=== PATIENT | male | born 1960 | race American Indian/Alaskan Native ===

== ENCOUNTER 2016-10-29 17:43 | Emergency (ER) | payer MEDICAID, OTHER ==
[2016-10-29] MEDS ORDERED: Sodium Chloride 0.9% 1,000 ML IV ONE (17:49)
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
[2016-10-29 20:36] VITALS: BP 123/78
--- NOTE | 2016-11-14 07:19 | EKG ---
10/29/2016- YAZAN WATKINS - EKG, per my reading, shows sinus rhythm at a rate of 104. [facility] /[id number]
== END 2016-10-29 20:25 | disposition home or self-care (01) ==
LOC: DL.ED 17:43
DX: I47.1 Supraventricular tachycardia (principal); I48.91 Unspecified atrial fibrillation; M19.90 Unspecified osteoarthritis, unspecified site; M06.9 Rheumatoid arthritis, unspecified; F17.210 Nicotine dependence, cigarettes, uncomplicated; Z79.82 Long term (current) use of aspirin; Z79.899 Other long term (current) drug therapy; Z88.6 Allergy status to analgesic agent
CPT/HCPCS: 36415; 80053; 84484; 85025; 93005; 96360; 99284; J7030

== ENCOUNTER 2016-11-12 16:18 | Emergency (ER) | payer MEDICAID, OTHER ==
[2016-11-12 16:50] VITALS: BP 122/87
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
[2016-11-12] MEDS ORDERED: Amoxicillin/Clavulanate K 875-125 MG Tab PO ONE (18:42)
[2016-11-12] MEDS ORDERED: Gentamicin 0.3% Ophth Soln 5 ML Bottle EYELF ONE (18:44)
== END 2016-11-12 18:55 | disposition home or self-care (01) ==
LOC: DL.ED 16:18
DX: S02.32XA Fracture of orbital floor, left side, initial encounter for closed fracture (principal); S05.12XA Contusion of eyeball and orbital tissues, left eye, initial encounter; H60.391 Other infective otitis externa, right ear; H72.91 Unspecified perforation of tympanic membrane, right ear; I48.91 Unspecified atrial fibrillation; I10 Essential (primary) hypertension; M19.90 Unspecified osteoarthritis, unspecified site; F17.210 Nicotine dependence, cigarettes, uncomplicated; Z79.82 Long term (current) use of aspirin; Z79.899 Other long term (current) drug therapy; Z88.6 Allergy status to analgesic agent; Y04.0XXA Assault by unarmed brawl or fight, initial encounter
CPT/HCPCS: 36415; 70486; 85025; 87070; 87077; 87186; 99283

== ENCOUNTER 2016-11-25 15:59 | Emergency (ER) | payer MEDICAID, OTHER ==
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
[2016-11-25 16:54] VITALS: BP 122/74
[2016-11-25 17:03] LABS: CHLORIDE,CL 108 mmol/L (101-111); SODIUM,NA 139 mmol/L (135-145)
[2016-11-25] MEDS ORDERED: Acetaminophen 325 MG Tab PO ONE (17:26)
--- NOTE | 2016-11-26 12:03 | EKG ---
11/25/2016 - YAZAN WATKINS I reviewed the EKG and agree with the machine's reading. [facility] /[id number]
== END 2016-11-25 17:45 | disposition home or self-care (01) ==
LOC: DL.ED 15:59
DX: S20.211A Contusion of right front wall of thorax, initial encounter (principal); R00.0 Tachycardia, unspecified; I10 Essential (primary) hypertension; M19.90 Unspecified osteoarthritis, unspecified site; M06.9 Rheumatoid arthritis, unspecified; F17.210 Nicotine dependence, cigarettes, uncomplicated; Z98.890 Other specified postprocedural states; Z88.6 Allergy status to analgesic agent; Z79.82 Long term (current) use of aspirin; Z79.899 Other long term (current) drug therapy; X58.XXXA Exposure to other specified factors, initial encounter
CPT/HCPCS: 36415; 80053; 84484; 85025; 93005; 99285; A9270

== ENCOUNTER 2017-01-08 23:16 | Emergency (ER) | payer MEDICAID, OTHER ==
[2017-01-08] MEDS ORDERED: Diltiazem 25 MG/5 ML SDV IVPUSH ONE (23:21)
--- NOTE | 2017-01-08 23:22 | EDM.PDOC ---
ED HPI GENERAL MEDICAL PROBLEM - General Chief Complaint: Cardiovascular Problem Stated Complaint: COMING BY AMBULANCE Time Seen by Provider: 01/08/17 23:21 Source of Information: Reports: Patient, EMS History Limitations: Reports: No Limitations - History of Present Illness INITIAL COMMENTS - FREE TEXT/NARRATIVE: recurrent h/o rapid heart. arrived with HR 180. denies CP/SOB. c/o pain in knee only, from recent knee replacement. Sx began while resting watching TV. Left Knee Pain Score (Numeric/FACES): 7 - Related Data Allergies Allergy/AdvReac Type Severity Reaction Status Date / Time ibuprofen [From Motrin] Allergy Tachycardia Verified 01/09/17 00:27 Home Meds: Home Meds Aspirin [Halfprin] 81 mg PO DAILY 09/20/14 [History] Diltiazem HCl [Diltiazem 24Hr ER] 240 mg PO DAILY 09/20/14 [History] Multivitamins,Therapeutic [Thera] 1 each PO DAILY 10/29/16 [History] Past Medical History HEENT History: Reports: Impaired Vision, Other (See Below) Other HEENT History: wears glasses Cardiovascular History: Reports: Afib, Hypertension Other Cardiovascular History: afib Respiratory History: Reports: None Gastrointestinal History: Reports: None Genitourinary History: Reports: None Musculoskeletal History: Reports: Arthritis, Fracture, Osteoarthritis, RA Neurological History: Reports: None Psychiatric History: Reports: Addiction Endocrine/Metabolic History: Reports: None Hematologic History: Reports: None Immunologic History: Reports: None Oncologic (Cancer) History: Reports: None Dermatologic History: Reports: None - Infectious Disease History Infectious Disease History: Reports: None - Past Surgical History Musculoskeletal Surgical History: Reports: Knee Replacement Social & Family History - Family History Family Medical History: Noncontributory - Tobacco Use Smoking Status *Q: Current Every Day Smoker Years of Tobacco use: 40 Packs/Tins Daily: 0.3 Used Tobacco, but Quit: Yes Month Tobacco Last Used: 12/2014 Second Hand Smoke Exposure: Yes - Caffeine Use Caffeine Use: Reports: Coffee, Soda, Tea Caffeine Use Comment: daily - Alcohol Use Days Per Week of Alcohol Use: 1 Number of Drinks Per Day: 12 Total Drinks Per Week: 12 - Recreational Drug Use Recreational Drug Use: No Recreational Drug Type: Reports: Marijuana/Hashish Recreational Drug Use Frequency: Rarely - Living Situation & Occupation Living situation: Reports: Single, with Family Occupation: Unemployed ED ROS GENERAL - Review of Systems Review Of Systems: ROS reveals no pertinent complaints other than HPI. ED EXAM, GENERAL - Physical Exam Exam: See Below Exam Limited By: No Limitations General Appearance: Alert, WD/WN, Anxious Ears: Hearing Grossly Normal Throat/Mouth: Normal Voice, No Airway Compromise Head: Atraumatic Neck: Non-Tender, Full Range of Motion Respiratory/Chest: No Respiratory Distress Cardiovascular: Tachycardia GI/Abdominal: Soft, Non-Tender Neurological: Alert, Oriented, Normal Cognition, No Motor/Sensory Deficits Psychiatric: Anxious Skin Exam: Warm, Dry Lymphatic: No Adenopathy Course - Vital Signs Last Recorded V/S: Last Vital Signs Temp 37.6 C 01/08/17 23:20 Pulse 109 H 01/09/17 00:32 Resp 18 01/09/17 00:32 BP 123/78 01/09/17 00:32 Pulse Ox 97 01/09/17 00:32 - Orders/Labs/Meds Orders: Active Orders 24 hr Category Date Time Status EKG 12 Lead [EKG Documentation Completion] [RC] STAT Care 01/08/17 23:24 Active EKG 12 Lead [EKG Documentation Completion] [RC] STAT Care 01/09/17 00:24 Active Labs: Laboratory Tests 01/08/17 01/08/17 Range/Units 23:30 23:30 WBC 10.3 H (5.0-10.0) 10^3/uL RBC 4.18 L (4.6-6.2) 10^6/uL Hgb 12.3 L (14.0-18.0) g/dL Hct 36.7 L (40.0-54.0) % MCV 87.8 (80-100) fL MCH 29.4 (27.0-34.0) pg MCHC 33.5 (33.0-35.0) g/dL Plt Count 177 (150-450) 10^3/uL Neut % (Auto) 79.5 H (42.2-75.2) % Lymph % (Auto) 10.1 L (20.5-50.1) % Nelson % (Auto) 8.7 H (2-8) % Eos % (Auto) 1.4 (1.0-3.0) % Baso % (Auto) 0.3 (0.0-1.0) % Sodium 139 (135-145) mmol/L Potassium 3.7 (3.6-5.0) mmol/L Chloride 106 (101-111) mmol/L Carbon Dioxide 23.0 (21.0-31.0) mmol/L Anion Gap 13.7 BUN 14 (7-18) mg/dL Creatinine 1.0 (0.6-1.3) mg/dL Est Cr Clr Drug Dosing 91.61 mL/min Estimated GFR (MDRD) > 60 BUN/Creatinine Ratio 14.00 Glucose 135 H (74-105) mg/dL Calcium 8.5 (8.4-10.2) mg/dl Total Bilirubin 0.7 (0.2-1.0) mg/dL AST 17 (10-42) IU/L ALT 18 (10-60) IU/L Alkaline Phosphatase 84 (42-121) IU/L Troponin I < 0.02 (0.00-0.02) ng/ml Total Protein 6.2 L (6.7-8.2) g/dl Albumin 3.6 (3.2-5.5) g/dl Globulin 2.6 Albumin/Globulin Ratio 1.38 Meds: Medications Discontinued Medications Generic Name Dose Route Start Last Admin Trade Name Freq PRN Reason Stop Dose Admin Diltiazem HCl 25 mg 01/08/17 23:21 01/08/17 23:24 Diltiazem IVPUSH 01/08/17 23:22 25 mg ONETIME ONE Administration Diltiazem HCl 30 mg 01/09/17 00:12 01/09/17 00:20 Cardizem PO 01/09/17 00:13 30 mg ONETIME ONE Administration - Re-Assessments/Exams Free Text/Narrative Re-Assessment/Exam: 01/09/17 00:12 re-exam; resting peacefully txting, no c/o, wants to go home. Departure - Departure Time of Disposition: 00:46 Disposition: Home, Self-Care 01 Condition: Good Clinical Impression: SVT (supraventricular tachycardia) Instructions: Paroxysmal Supraventricular Tachycardia, [id number] Forms: ED Department Discharge Additional Instructions: 1) rest avoid bending lifting straining 2) follow up at clinic or recheck if there is any change or concern - My Orders Last 24 Hours: My Active Orders 01/08/17 23:24 EKG 12 Lead [EKG Documentation Completion] [RC] STAT 01/09/17 00:24 EKG 12 Lead [EKG Documentation Completion] [RC] STAT - Assessment/Plan Last 24 Hours: My Active Orders 01/08/17 23:24 EKG 12 Lead [EKG Documentation Completion] [RC] STAT 01/09/17 00:24 EKG 12 Lead [EKG Documentation Completion] [RC] STAT
[2017-01-08 23:53] LABS: CHLORIDE,CL 106 mmol/L (101-111); SODIUM,NA 139 mmol/L (135-145)
[2017-01-09] MEDS ORDERED: Diltiazem IR 30 MG Tab PO ONE (00:12)
[2017-01-09 00:33] VITALS: BP 123/78
--- NOTE | 2017-01-12 01:28 | EKG ---
01/08/2017 - YAZAN WATKINS - TIME OF EK hours. This is the first of two EKG's. The 12-lead EKG shows a supraventricular tachycardia with a ventricular rate of 181. Any ST-T wave changes are most likely rate related. [facility] /[id number] MTDD
--- NOTE | 2017-01-12 01:34 | EKG ---
01/08/2017 - YAZAN WATKINS - This is the second of 2 EKGs performed approximately 20 minutes apart. This EKG now shows a normal sinus rhythm with a ventricular rate of 98. Normal axis and intervals. No acute ST-segment or T-wave changes. The previous supraventricular tachycardia on the first EKG has resolved. [facility] /[id number]
== END 2017-01-09 00:49 | disposition home or self-care (01) ==
LOC: DL.ED 23:16
DX: I47.1 Supraventricular tachycardia (principal); I10 Essential (primary) hypertension; I48.91 Unspecified atrial fibrillation; M19.90 Unspecified osteoarthritis, unspecified site; F17.210 Nicotine dependence, cigarettes, uncomplicated; Z96.659 Presence of unspecified artificial knee joint; Z79.82 Long term (current) use of aspirin; Z79.899 Other long term (current) drug therapy; Z88.6 Allergy status to analgesic agent
CPT/HCPCS: 36415; 71010; 80053; 84484; 85025; 93005; 96374; 99285; A9270; J3490

== ENCOUNTER 2017-01-12 10:25 | Emergency (ER) | payer MEDICAID, OTHER ==
--- NOTE | 2017-01-12 10:41 | EDM.PDOC ---
ED HPI GENERAL MEDICAL PROBLEM - General Chief Complaint: Lower Extremity Injury/Pain Stated Complaint: [id number] HAD SURGERY KNEE SWOLLEN Time Seen by Provider: 01/12/17 10:40 Source of Information: Reports: Patient, Old Records, RN, RN Notes Reviewed History Limitations: Reports: No Limitations - History of Present Illness INITIAL COMMENTS - FREE TEXT/NARRATIVE: Arrives from home by POV with c/o increasing left knee pain, swelling, redness, and feels hot to touch. Pt is on POD #6 s/p left TKR by Dr. Santamaria at [facility] in [place]. Pt reports recurrent chills in the last 24 hours. Denies fevers. He has not removed the postop. dressing. 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, Other Medication(s) Left Knee Pain Score (Numeric/FACES): 7 - Related Data Allergies Allergy/AdvReac Type Severity Reaction Status Date / Time ibuprofen [From Motrin] Allergy Tachycardia Verified 01/12/17 10:34 Home Meds: Home Meds Aspirin [Halfprin] 81 mg PO DAILY 09/20/14 [History] Diltiazem HCl [Diltiazem 24Hr ER] 240 mg PO DAILY 09/20/14 [History] Multivitamins,Therapeutic [Thera] 1 each PO DAILY 10/29/16 [History] Acetaminophen/oxyCODONE [Percocet 325-5 MG] 1 - 2 tab PO Q4HR PRN 01/12/17 [ History] Sennosides/Docusate Sodium [Senna S Tablet] 1 each PO BID 01/12/17 [History] Past Medical History HEENT History: Reports: Impaired Vision, Other (See Below) Other HEENT History: wears glasses Cardiovascular History: Reports: Afib, Hypertension Other Cardiovascular History: afib Respiratory History: Reports: None Gastrointestinal History: Reports: None Genitourinary History: Reports: None Musculoskeletal History: Reports: Arthritis, Fracture, Osteoarthritis, RA Neurological History: Reports: None Psychiatric History: Reports: Addiction Endocrine/Metabolic History: Reports: None Hematologic History: Reports: None Immunologic History: Reports: None Oncologic (Cancer) History: Reports: None Dermatologic History: Reports: None - Infectious Disease History Infectious Disease History: Reports: None - Past Surgical History Musculoskeletal Surgical History: Reports: Knee Replacement Social & Family History - Family History Family Medical History: Noncontributory - Tobacco Use Smoking Status *Q: Current Every Day Smoker Years of Tobacco use: 40 Packs/Tins Daily: 0.3 Used Tobacco, but Quit: Yes Month Tobacco Last Used: 12/2014 Second Hand Smoke Exposure: Yes - Caffeine Use Caffeine Use: Reports: Coffee, Soda, Tea Caffeine Use Comment: daily - Alcohol Use Days Per Week of Alcohol Use: 1 Number of Drinks Per Day: 12 Total Drinks Per Week: 12 - Recreational Drug Use Recreational Drug Use: No Recreational Drug Type: Reports: Marijuana/Hashish Recreational Drug Use Frequency: Rarely - Living Situation & Occupation Living situation: Reports: Single, with Family Occupation: Unemployed Review of Systems - Review of Systems Review Of Systems: ROS reveals no pertinent complaints other than HPI. ED EXAM, GENERAL - Physical Exam Exam: See Below Exam Limited By: No Limitations General Appearance: Alert, WD/WN, No Apparent Distress Head: Atraumatic, Normocephalic Respiratory/Chest: No Respiratory Distress, Lungs Clear, Normal Breath Sounds, No Accessory Muscle Use, Chest Non-Tender Cardiovascular: Normal Peripheral Pulses, Regular Rate, Rhythm Peripheral Pulses: 2+: Dorsalis Pedis (L), Dorsalis Pedis (R) GI/Abdominal: Normal Bowel Sounds, Soft, Non-Tender, No Distention (Male) Exam: Deferred Rectal (Males) Exam: Deferred Back Exam: Normal Inspection Extremities: No Pedal Edema, Normal Capillary Refill, Joint Swelling (left knee) , Limited Range of Motion (left knee), Increased Warmth (left knee), Redness ( left knee), Other (postop. occlusive dressing not removed.) Neurological: Alert, Oriented, Normal Cognition, No Motor/Sensory Deficits Psychiatric: Normal Affect, Normal Mood Course - Vital Signs Last Recorded V/S: Last Vital Signs Temp 36.7 C 01/12/17 10:39 Pulse 78 01/12/17 10:39 Resp 16 01/12/17 10:39 BP 126/74 01/12/17 10:39 Pulse Ox 98 01/12/17 10:39 - Orders/Labs/Meds Orders: Active Orders 24 hr Category Date Time Status Peripheral IV Care [RC] . DIRECTED Care 01/12/17 10:53 Active CULTURE BLOOD [BC] Stat Lab 01/12/17 11:05 Received CULTURE BLOOD [BC] Stat Lab 01/12/17 11:14 Received Sodium Chloride 0.9% [Saline Flush] Med 01/12/17 10:52 Active 10 ml FLUSH ASDIRECTED PRN Blood Culture x2 Reflex Set [OM.PC] Stat Oth 01/12/17 10:52 Ordered Peripheral IV Insertion Adult [OM.PC] Stat Ot 01/12/17 10:52 Ordered Medication Orders Sodium Chloride (Saline Flush) 10 ml FLUSH ASDIRECTED PRN PRN Reason: Keep Vein Open Last Admin: 01/12/17 11:18 Dose: 10 ml Labs: Laboratory Tests 01/12/17 01/12/17 01/12/17 Range/Units 11:05 11:05 11:05 WBC 8.8 (5.0-10.0) 10^3/uL RBC 4.07 L (4.6-6.2) 10^6/uL Hgb 11.9 L (14.0-18.0) g/dL Hct 35.5 L (40.0-54.0) % MCV 87.2 (80-100) fL MCH 29.2 (27.0-34.0) pg MCHC 33.5 (33.0-35.0) g/dL Plt Count 255 (150-450) 10^3/uL Neut % (Auto) 79.8 H (42.2-75.2) % Lymph % (Auto) 9.3 L (20.5-50.1) % Bill[place] % (Auto) 6.9 (2-8) % Eos % (Auto) 3.7 H (1.0-3.0) % Baso % (Auto) 0.3 (0.0-1.0) % ESR 85 H (0-15) mm/hr Sodium 137 (135-145) mmol/L Potassium 4.3 (3.6-5.0) mmol/L Chloride 102 (101-111) mmol/L Carbon Dioxide 25.0 (21.0-31.0) mmol/L Anion Gap 14.3 BUN 16 (7-18) mg/dL Creatinine 0.9 (0.6-1.3) mg/dL Est Cr Clr Drug Dosing 101.79 mL/min Estimated GFR (MDRD) > 60 BUN/Creatinine Ratio 17.77 Glucose 120 H (74-105) mg/dL Lactic Acid 0.8 (0.5-2.2) mmol/L Calcium 8.7 (8.4-10.2) mg/dl Total Bilirubin 1.0 (0.2-1.0) mg/dL AST 18 (10-42) IU/L ALT 21 (10-60) IU/L Alkaline Phosphatase 93 (42-121) IU/L C-Reactive Protein (0.0-1.3) mg/dL Total Protein 7.0 (6.7-8.2) g/dl Albumin 3.4 (3.2-5.5) g/dl Globulin 3.6 Albumin/Globulin Ratio 0.94 // Range/Units 11:05 WBC (5.0-10.0) 10^3/uL RBC (4.6-6.2) 10^6/uL Hgb (14.0-18.0) g/dL Hct (40.0-54.0) % MCV (80-100) fL MCH (27.0-34.0) pg MCHC (33.0-35.0) g/dL Plt Count (150-450) 10^3/uL Neut % (Auto) (42.2-75.2) % Lymph % (Auto) (20.5-50.1) % Billings % (Auto) (2-8) % Eos % (Auto) (1.0-3.0) % Baso % (Auto) (0.0-1.0) % ESR (0-15) mm/hr Sodium (135-145) mmol/L Potassium (3.6-5.0) mmol/L Chloride (101-111) mmol/L Carbon Dioxide (21.0-31.0) mmol/L Anion Gap BUN (7-18) mg/dL Creatinine (0.6-1.3) mg/dL Est Cr Clr Drug Dosing mL/min Estimated GFR (MDRD) BUN/Creatinine Ratio Glucose (74-105) mg/dL Lactic Acid (0.5-2.2) mmol/L Calcium (8.4-10.2) mg/dl Total Bilirubin (0.2-1.0) mg/dL AST (10-42) IU/L ALT (10-60) IU/L Alkaline Phosphatase (42-121) IU/L C-Reactive Protein 19.5 H (0.0-1.3) mg/dL Total Protein (6.7-8.2) g/dl Albumin (3.2-5.5) g/dl Globulin Albumin/Globulin Ratio Meds: Medications Generic Name Dose Route Start Last Admin Trade Name Freq PRN Reason Stop Dose Admin Sodium Chloride 10 ml 01/12/17 10:52 01/12/17 11:18 Saline Flush FLUSH 10 ml ASDIRECTED PRN Administration Keep Vein Open Discontinued Medications Generic Name Dose Route Start Last Admin Trade Name Freq PRN Reason Stop Dose Admin Morphine Sulfate 4 mg 01/12/17 10:53 01/12/17 11:17 Morphine IVPUSH 01/12/17 10:54 4 mg ONETIME ONE Administration Departure - Departure Time of Disposition: 12:40 Disposition: Home, Self-Care 01 Condition: Fair Clinical Impression: Postoperative pain of left knee - Discharge Information Instructions: Total Knee Replacement, [id number] Forms: ED Department Discharge Additional Instructions: Go directly to Dr. Santamaria's orthopedic office in [place] now. You must be there before 2:30PM today. - My Orders Last 24 Hours: My Active Orders 01/12/17 10:52 Sodium Chloride 0.9% [Saline Flush] 10 ml FLUSH ASDIRECTED PRN Blood Culture x2 Reflex Set [OM.PC] Stat Peripheral IV Insertion Adult [OM.PC] Stat 01/12/17 10:53 Peripheral IV Care [RC] . DIRECTED 01/12/17 11:05 CULTURE BLOOD [BC] Stat 01/12/17 11:14 CULTURE BLOOD [BC] Stat - Assessment/Plan Last 24 Hours: My Active Orders 01/12/17 10:52 Sodium Chloride 0.9% [Saline Flush] 10 ml FLUSH ASDIRECTED PRN Blood Culture x2 Reflex Set [OM.PC] Stat Peripheral IV Insertion Adult [OM.PC] Stat 01/12/17 10:53 Peripheral IV Care [RC] . DIRECTED 01/12/17 11:05 CULTURE BLOOD [BC] Stat 01/12/17 11:14 CULTURE BLOOD [BC] Stat
[2017-01-12] MEDS ORDERED: Sodium Chloride 0.9% 10 ML Syringe FLUSH PRN (10:52)
[2017-01-12] MEDS ORDERED: Morphine 4 MG/ML Syringe IVPUSH ONE (10:53)
[2017-01-12 11:51] LABS: CHLORIDE,CL 102 mmol/L (101-111); SODIUM,NA 137 mmol/L (135-145)
--- NOTE | 2017-01-12 11:55 | CR ---
Clinical history: 56-year-old male with "hot, red, and painful" left knee (status post total knee re placement). Interpretation: Long vertical row surgical skin windy extending from above the distal femoral component down below the proximal tibial component of total left knee prosthesis. Distal femoral, proximal tibial, and retropatellar component of the replacement appear to be satisfa ctorily seated. (Portions of 2 orthopedic screws embedded, respectively, in the distal left femur and proximal left tibia anteriorly). Pronounced soft tissue swelling and apparent left knee joint effusion but no inflammatory periostiti s or bony destruction. . No fracture or dislocation.
[2017-01-12 12:45] VITALS: BP 116/88
== END 2017-01-12 12:50 | disposition home or self-care (01) ==
LOC: DL.ED 10:25
DX: G89.18 Other acute postprocedural pain (principal); M25.562 Pain in left knee; I48.91 Unspecified atrial fibrillation; I10 Essential (primary) hypertension; M19.90 Unspecified osteoarthritis, unspecified site; M06.9 Rheumatoid arthritis, unspecified; F17.210 Nicotine dependence, cigarettes, uncomplicated; Z88.6 Allergy status to analgesic agent; Z79.899 Other long term (current) drug therapy
CPT/HCPCS: 36415; 73562; 80053; 83605; 85025; 85651; 86140; 87040; 96374; 99283; J2270; J7050

== ENCOUNTER 2018-01-03 09:51 | Emergency (ER) | payer MEDICAID, OTHER ==
[2018-01-03] MEDS ORDERED: Sodium Chloride 0.9% 10 ML Syringe FLUSH PRN (10:13)
[2018-01-03] MEDS ORDERED: MVI, Adult with Vitamin K 10 ML, Folic Acid 1 MG, Thiamine 100 MG in Lactated Ringers 1... IV ONE ×4 (10:14)
[2018-01-03 10:27] VITALS: BP 128/77
[2018-01-03 10:37] LABS: CHLORIDE,CL 107 mmol/L (101-111); SODIUM,NA 140 mmol/L (135-145)
[2018-01-03] MEDS ORDERED: Thiamine 200 MG/2 ML MDV ONE (10:38)
[2018-01-03] MEDS ORDERED: MVI, Adult with Vitamin K 10 ML SDV IV ONE (10:38)
[2018-01-03] MEDS ORDERED: LORazepam 0.5 MG Tab PO ONE (11:07)
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
== END 2018-01-03 12:05 | disposition home or self-care (01) ==
LOC: DL.ED 09:51
DX: I49.3 Ventricular premature depolarization (principal); R00.2 Palpitations; F10.10 Alcohol abuse, uncomplicated; F41.9 Anxiety disorder, unspecified; I10 Essential (primary) hypertension; Z88.6 Allergy status to analgesic agent; Z79.82 Long term (current) use of aspirin; Z79.899 Other long term (current) drug therapy; Y90.6 Blood alcohol level of 120-199 mg/100 ml
CPT/HCPCS: 36415; 71045; 80053; 84484; 85025; 85610; 93005; 96365; 99285; A9270; G0480; J3411; J7050; J7120; J3490

== ENCOUNTER 2020-10-27 09:04 | Emergency (ER) | payer MEDICAID, OTHER ==
[2020-10-27 09:19] VITALS: BP 140/92; PULSE 93
[2020-10-27 10:04] LABS: ANION GAP 11.6 mEq/L (7-13); CHLORIDE,CL 103 mmol/L (98-107); SODIUM,NA 138 mmol/L (136-145)
--- NOTE | 2020-10-27 10:48 | CT ---
PROCEDURE INFORMATION: Exam: CT Abdomen And Pelvis Without Contrast Exam date and time: 10/27/2020 10:23 AM Age: 60 years old Clinical indication: Abdominal pain; Localized; Left upper quadrant (luq) TECHNIQUE: Imaging protocol: Computed tomography of the abdomen and pelvis without contrast. Radiation optimization: All CT scans at this facility use at least one of these dose optimization techniques: automated exposure control; mA and/or kV adjustment per patient size (includes targeted exams where dose is matched to clinical indication); or iterative reconstruction. COMPARISON: No relevant prior studies available. FINDINGS: Lungs: A 0.9 x 0.7 cm nodule is present within the right lower lobe. Lung bases are otherwise unremarkable. Liver: Normal. No mass. Gallbladder and bile ducts: The gallbladder is mildly distended. No radiopaque stones are identified. The common bile duct is not enlarged. Pancreas: Normal. No ductal dilation. Spleen: Normal. No splenomegaly. Adrenal glands: The left adrenal gland is slightly nodular in contour. No measurable nodule identified. Kidneys and ureters: A low-density lesion is present within the mid to lower pole of the left kidney. It measures approximately 1.5 x 1.4 cm in size. Internal Hounsfield units are near 0 suggesting this likely represents a simple cyst. No solid renal lesion, stone or hydronephrosis present. Ureters are decompressed. No ureteral calculi are identified. Stomach and bowel: Scattered diverticula are present within the colon. No active diverticulitis identified. Appendix: The appendix is well seen and is normal in appearance. Intraperitoneal space: Unremarkable. No free air. No significant fluid collection. Vasculature: Unremarkable. No abdominal aortic aneurysm. Lymph nodes: Few shotty periportal and Teri celiac lymph nodes are identified. Jukebox Operator lymph node is seen on image number 39 of series 2 and measures approximately 1.1 cm in short axis diameter. This is most likely reactive in nature. Urinary bladder: Unremarkable as visualized. Reproductive: Unremarkable as visualized. Bones/joints: Mild degenerative changes are present within the lumbar spine most advanced at L5-S1. No compression fracture or focal lesion identified Soft tissues: Unremarkable. IMPRESSION: 1. Diverticulosis without evidence for active diverticulitis. 2. Mildly distended gallbladder without radiopaque stone or biliary ductal dilatation present. 3. Etiology for left upper quadrant pain is not identified. Few shotty lymph nodes are present which are likely reactive in nature. 4. 9 mm pulmonary nodule in the right lower lobe. Followup as per Fleischner society guidelines below. New Fleischner Society guidelines for followup and management of pulmonary nodules (2017) Solid nodules Solitary nodule size: <6 mm low risk patients: no follow-up needed high risk patients: optional CT at 12 months Solitary nodule size: 6-8 mm low risk patients: follow-up at 6-12 months, then consider further follow-up at 18-24 months high risk patients: initial follow-up CT at 6-12 months and then at 18-24 months if no change Solitary nodule size: >8 mm either low or high risk patients consider follow-up CT at 3 months, and/or CT-PET, and/or biopsy Multiple nodules size: <6 mm low risk patients: no routine follow-up high risk patients: optional CT at 12 months Multiple nodules size: 6-8 mm low risk patients: follow-up at 3-6 months, then consider further follow-up at 18-24 months high risk patients: follow-up at 3-6 months, then at 18-24 months if no change Multiple nodules size: >8 mm low risk patients: follow-up at 3-6 months, then consider further follow-up at 18-24 months high risk patients: follow-up at 3-6 months, then at 18-24 months if no change Note: newly detected indeterminate nodule in persons 35 years of age or older. low risk patients: minimal or absent history of smoking and or other known risk factors high risk patients: history of smoking or of other known risk factors (e.g. first degree relative with lung cancer, or exposure to asbestos, radon, uranium) if a nodule up to 8 mm is partly solid or is ground glass further follow up is required after 24 months to exclude possible slow growing adenocarcinoma (SABIHA) COMMENTS: Consistent with the [employer]'s Incidental Findings Committee white paper (J Am Lea Radiol 2018): Any incidental renal lesion less than 1 cm or classified as too small to characterize, or any incidental cystic renal lesion characterized as simple-appearing, is likely benign. No follow-up imaging is recommended for these lesions per consensus recommendations based on imaging criteria.
[2020-10-27] MEDS ORDERED: Nitrofurantoin Monohydrate/Macrocrystalline 100 MG Cap PO ONE (11:12)
[2020-10-27] MEDS ORDERED: Famotidine 20 MG Tab PO ONE (11:12)
--- NOTE | 2020-10-27 11:12 | EDM.PDOC ---
ED HPI GENERAL MEDICAL PROBLEM - General Chief Complaint: Abdominal Pain Stated Complaint: [id number] STOMACH PAIN [id number] Time Seen by Provider: 10/27/20 09:20 Source of Information: Reports: Patient, RN History Limitations: Reports: No Limitations - History of Present Illness INITIAL COMMENTS - FREE TEXT/NARRATIVE: ED with c/o LUQ pain starting , Dull ache. No NVD. No change in pain with eating, or Movement. No fevers. Admits ETOH prior to onset of pain. no difficulty with urination Left Abdomen Pain Score (Numeric/FACES): 8 - Related Data Allergies Allergy/AdvReac Type Severity Reaction Status Date / Time ibuprofen [From Motrin] Allergy Tachycardia Verified 10/27/20 09:21 Home Meds: Home Meds . [No Known Home Meds] 10/27/20 [History] Past Medical History HEENT History: Reports: Impaired Vision, Other (See Below) Other HEENT History: wears glasses Cardiovascular History: Reports: Afib, Hypertension Other Cardiovascular History: SVT Respiratory History: Reports: None Gastrointestinal History: Reports: None Genitourinary History: Reports: None Musculoskeletal History: Reports: Arthritis, Fracture, Osteoarthritis, RA Neurological History: Reports: None Psychiatric History: Reports: Addiction Endocrine/Metabolic History: Reports: None Hematologic History: Reports: None Immunologic History: Reports: None Oncologic (Cancer) History: Reports: None Dermatologic History: Reports: None - Infectious Disease History Infectious Disease History: Reports: None - Past Surgical History Head Surgeries/Procedures: Reports: None HEENT Surgical History: Reports: Adenoidectomy, Tonsillectomy Other HEENT Surgeries/Procedures: hole in eardrum repaired Cardiovascular Surgical History: Reports: Cardiac Ablation GI Surgical History: Reports: Colonoscopy Musculoskeletal Surgical History: Reports: Arthroscopic Knee, Knee Replacement Other Musculoskeletal Surgeries/Procedures:: torn ligament in both knees repaired, screws in right ankle from fx Social & Family History - Family History Family Medical History: No Pertinent Family History - Tobacco Use Tobacco Use Status *Q: Current Every Day Tobacco User Years of Tobacco use: 40 Packs/Tins Daily: 1 - Caffeine Use Caffeine Use: Reports: Coffee, Tea Caffeine Use Comment: daily - Recreational Drug Use Recreational Drug Use: No - Living Situation & Occupation Living situation: Reports: Single, with Family Occupation: Unemployed ED ROS GENERAL - Review of Systems Review Of Systems: Comprehensive ROS is negative, except as noted in HPI. ED EXAM, GI/ABD - Physical Exam Exam: See Below Exam Limited By: No Limitations General Appearance: Alert, Mild Distress Eyes: Bilateral: EOMI Ears: Normal External Exam Nose: Normal Inspection Throat/Mouth: Normal Inspection Head: Atraumatic Neck: Normal Inspection Respiratory/Chest: No Respiratory Distress, Lungs Clear, Normal Breath Sounds Cardiovascular: Normal Peripheral Pulses, Regular Rate, Rhythm GI/Abdominal Exam: Normal Bowel Sounds, Soft, Tender (minimal reproduction of pain LUQ with deep palpation). No: Hepatomegaly, Splenomegaly Back Exam: Normal Inspection, Full Range of Motion Extremities: Other (chronic deformity L5th finger lateral deviation) Neurological: Alert, Oriented, Normal Cognition Psychiatric: Normal Affect Skin Exam: Warm, Dry, Intact Course - Vital Signs Last Recorded V/S: Last Vital Signs Temp 97.4 F 10/27/20 09:17 Pulse 93 10/27/20 09:17 Resp 20 10/27/20 09:17 BP 140/92 H 10/27/20 09:17 Pulse Ox 99 10/27/20 09:17 - Orders/Labs/Meds Orders: Active Orders 24 hr Category Date Time Status CULTURE URINE [RM] Stat Lab 10/27/20 09:20 Received Labs: Laboratory Tests 10/27/20 10/27/20 10/27/20 Range/Units 09:20 09:20 09:40 WBC 3.2 L (5.0-10.0) 10^3/uL RBC 5.02 (4.6-6.2) 10^6/uL Hgb 15.5 (14.0-18.0) g/dL Hct 45.2 (40.0-54.0) % MCV 90.0 D (80-100) fL MCH 30.9 (27.0-34.0) pg MCHC 34.3 (33.0-35.0) g/dL Plt Count 158 (150-450) 10^3/uL Neut % (Auto) 55.8 (42.2-75.2) % Lymph % (Auto) 26.2 (20.5-50.1) % [place] % (Auto) 14.0 H (2-8) % Eos % (Auto) 3.1 H (1.0-3.0) % Baso % (Auto) 0.9 (0.0-1.0) % Sodium (136-145) mmol/L Potassium (3.5-5.1) mmol/L Chloride (98-107) mmol/L Carbon Dioxide (21-32) mmol/L Anion Gap (7-13) mEq/L BUN (7-18) mg/dL Creatinine (0.70-1.30) mg/dL Est Cr Clr Drug Dosing mL/min Estimated GFR (MDRD) BUN/Creatinine Ratio (No establ ref range) Glucose (70-99) mg/dL Lactic Acid (0.4-2.0) mmol/L Calcium (8.5-10.1) mg/dL Total Bilirubin (0.2-1.0) mg/dL AST (15-37) U/L ALT (16-63) U/L Alkaline Phosphatase (46-116) U/L Total Protein (6.4-8.2) g/dL Albumin (3.4-5.0) g/dL Globulin Albumin/Globulin Ratio Amylase (25-115) U/L Lipase (73-393) U/L Urine Color Dark yellow (YELLOW) Urine Appearance Slightly cloudy (CLEAR) Urine pH 6.0 (5.0-9.0) Ur Specific [place] >= 1.030 (1.005-1.030) Urine Protein 100 H (NEGATIVE) Urine Glucose (UA) Negative (NEGATIVE) Urine Ketones Negative (NEGATIVE) Urine Occult Blood Trace-intact H (NEGATIVE) Urine Nitrite Positive H (NEGATIVE) Urine Bilirubin Small H (NEGATIVE) Urine Urobilinogen 1.0 (0.2-1.0) mg/dL Ur Leukocyte Esterase Negative (NEGATIVE) Urine RBC 5-10 H /HPF Urine WBC 5-10 H (0-5/HPF) /HPF Ur Epithelial Cells Few (NOT SEEN) /HPF Amorphous Sediment Few (NOT SEEN) /HPF Urine Bacteria Few (0-FEW/HPF) /HPF Urine Mucus Moderate H (NOT SEEN) /LPF Urine Opiates Screen Negative (NEGATIVE) Ur Oxycodone Screen Negative (NEGATIVE) Urine Methadone Screen Negative (NEGATIVE) Ur Barbiturates Screen Negative (NEGATIVE) U Tricyclic Antidepress Negative (NEGATIVE) Ur Phencyclidine Scrn Negative (NEGATIVE) Ur Amphetamine Screen Negative (NEGATIVE) U Methamphetamines Scrn Positive H (NEGATIVE) Urine MDMA Screen Negative (NEGATIVE) U Benzodiazepines Scrn Negative (NEGATIVE) Urine Cocaine Screen Negative (NEGATIVE) U Marijuana (THC) Screen Positive H (NEGATIVE) Ethyl Alcohol (0) mg/dL 10/27/20 10/27/20 Range/Units 09:40 09:40 WBC (5.0-10.0) 10^3/uL RBC (4.6-6.2) 10^6/uL Hgb (14.0-18.0) g/dL Hct (40.0-54.0) % MCV (80-100) fL MCH (27.0-34.0) pg MCHC (33.0-35.0) g/dL Plt Count (150-450) 10^3/uL Neut % (Auto) (42.2-75.2) % Lymph % (Auto) (20.5-50.1) % [place] % (Auto) (2-8) % Eos % (Auto) (1.0-3.0) % Baso % (Auto) (0.0-1.0) % Sodium 138 (136-145) mmol/L Potassium 3.6 (3.5-5.1) mmol/L Chloride 103 (98-107) mmol/L Carbon Dioxide 27 (21-32) mmol/L Anion Gap 11.6 (7-13) mEq/L BUN 16 (7-18) mg/dL Creatinine 1.11 (0.70-1.30) mg/dL Est Cr Clr Drug Dosing 78.65 mL/min Estimated GFR (MDRD) > 60 BUN/Creatinine Ratio 14.4 (No establ ref range) Glucose 109 H (70-99) mg/dL Lactic Acid 1.8 (0.4-2.0) mmol/L Calcium 8.4 L (8.5-10.1) mg/dL Total Bilirubin 1.6 H (0.2-1.0) mg/dL AST 171 H (15-37) U/L ALT 227 H (16-63) U/L Alkaline Phosphatase 106 (46-116) U/L Total Protein 8.0 (6.4-8.2) g/dL Albumin 3.5 (3.4-5.0) g/dL Globulin 4.5 Albumin/Globulin Ratio 0.8 Amylase 99 (25-115) U/L Lipase 139 (73-393) U/L Urine Color (YELLOW) Urine Appearance (CLEAR) Urine pH (5.0-9.0) Ur Specific [place] (1.005-1.030) Urine Protein (NEGATIVE) Urine Glucose (UA) (NEGATIVE) Urine Ketones (NEGATIVE) Urine Occult Blood (NEGATIVE) Urine Nitrite (NEGATIVE) Urine Bilirubin (NEGATIVE) Urine Urobilinogen (0.2-1.0) mg/dL Ur Leukocyte Esterase (NEGATIVE) Urine RBC /HPF Urine WBC (0-5/HPF) /HPF Ur Epithelial Cells (NOT SEEN) /HPF Amorphous Sediment (NOT SEEN) /HPF Urine Bacteria (0-FEW/HPF) /HPF Urine Mucus (NOT SEEN) /LPF Urine Opiates Screen (NEGATIVE) Ur Oxycodone Screen (NEGATIVE) Urine Methadone Screen (NEGATIVE) Ur Barbiturates Screen (NEGATIVE) U Tricyclic Antidepress (NEGATIVE) Ur Phencyclidine Scrn (NEGATIVE) Ur Amphetamine Screen (NEGATIVE) U Methamphetamines Scrn (NEGATIVE) Urine MDMA Screen (NEGATIVE) U Benzodiazepines Scrn (NEGATIVE) Urine Cocaine Screen (NEGATIVE) U Marijuana (THC) Screen (NEGATIVE) Ethyl Alcohol < 3 (0) mg/dL - Re-Assessments/Exams Free Text/Narrative Re-Assessment/Exam: 10/27/20 11:18 Results of labs and CT discussed with patient. Informed of abnormal findings on CT and instructed to follow up primary care. Departure - Departure Time of Disposition: 11:05 Disposition: Home, Self-Care 01 Condition: Good Clinical Impression: Methamphetamine abuse Abdominal pain Qualifiers: Abdominal location: left upper quadrant Qualified Code(s): R10.12 - Left upper quadrant pain UTI (urinary tract infection) Qualifiers: Urinary tract infection type: acute cystitis Hematuria presence: with hematuria Qualified Code(s): N30.01 - Acute cystitis with hematuria - Discharge Information *PRESCRIPTION DRUG MONITORING PROGRAM REVIEWED*: No *COPY OF PRESCRIPTION DRUG MONITORING REPORT IN PATIENT ALEYDA: No Instructions: Urinary Tract Infection, Adult, [id number] Additional Instructions: increase fluids bland diet, avoid alcohol Follow up in clinic within next 2 weeks to disuse results of CT and plan for further follow up macrodantin 100mg ER one twice daily for one week stop using meth decrease alcohol use Sepsis Event Note (ED) - Evaluation Sepsis Screening Result: No Definite Risk - Focused Exam Vital Signs: Vital Signs Temp Pulse Resp BP Pulse Ox 10/27/20 09:17 97.4 F 93 20 140/92 H 99 - My Orders Last 24 Hours: My Active Orders 10/27/20 09:20 CULTURE URINE [] Stat - Assessment/Plan Last 24 Hours: My Active Orders 10/27/20 09:20 CULTURE URINE [] Stat
== END 2020-10-27 11:25 | disposition home or self-care (01) ==
LOC: DL.ED 09:04
DX: N30.01 Acute cystitis with hematuria (principal); F15.10 Other stimulant abuse, uncomplicated; Z88.6 Allergy status to analgesic agent; Z72.0 Tobacco use; I48.91 Unspecified atrial fibrillation; I10 Essential (primary) hypertension; M06.9 Rheumatoid arthritis, unspecified
CPT/HCPCS: 36415; 74176; 80053; 80305-QW; 80307; 81001; 82150; 83605; 83690; 85025; 87086; 99284-25; A9270-GY

== ENCOUNTER 2021-03-19 02:55 | Emergency (ER) | payer MEDICAID ==
[2021-03-19 03:33] VITALS: BP 129/92; PULSE 62
--- NOTE | 2021-03-19 04:13 | EDM.PDOC ---
ED HPI GENERAL MEDICAL PROBLEM - General Chief Complaint: Back Pain or Injury Stated Complaint: PT FELL A WEEK AGO PAIN IN TAILBONE Time Seen by Provider: 03/19/21 03:45 Source of Information: Reports: Patient, Family History Limitations: Reports: No Limitations - History of Present Illness INITIAL COMMENTS - FREE TEXT/NARRATIVE: ED ambulaatory with reports difficulty sleeping tonight so came to ED. Pain to tailbone area, Fell one week ago. Hard time sitting Tylenol one or two times daily. No radiation down legs. No loss of sensation. Hurts to change to lying position. Has not been seen prior in clinic Lower Mid-Posterior Back Pain Score (Numeric/FACES): 10 - Related Data Allergies Allergy/AdvReac Type Severity Reaction Status Date / Time ibuprofen [From Motrin] Allergy Tachycardia Verified 10/27/20 09:21 Home Meds: Home Meds . [No Known Home Meds] 10/27/20 [History] Past Medical History HEENT History: Reports: Impaired Vision, Other (See Below) Other HEENT History: wears glasses Cardiovascular History: Reports: Afib, Hypertension Other Cardiovascular History: SVT Respiratory History: Reports: None Gastrointestinal History: Reports: None Genitourinary History: Reports: None Musculoskeletal History: Reports: Arthritis, Fracture, Osteoarthritis, RA Neurological History: Reports: None Psychiatric History: Reports: Addiction Endocrine/Metabolic History: Reports: None Hematologic History: Reports: None Immunologic History: Reports: None Oncologic (Cancer) History: Reports: None Dermatologic History: Reports: None - Infectious Disease History Infectious Disease History: Reports: None - Past Surgical History Head Surgeries/Procedures: Reports: None HEENT Surgical History: Reports: Adenoidectomy, Tonsillectomy Other HEENT Surgeries/Procedures: hole in eardrum repaired Cardiovascular Surgical History: Reports: Cardiac Ablation GI Surgical History: Reports: Colonoscopy Musculoskeletal Surgical History: Reports: Arthroscopic Knee, Knee Replacement Other Musculoskeletal Surgeries/Procedures:: torn ligament in both knees re paired, screws in right ankle from fx Social & Family History - Family History Family Medical History: No Pertinent Family History - Tobacco Use Tobacco Use Status *Q: Light Tobacco User Years of Tobacco use: 20 Packs/Tins Daily: 0.1 - Caffeine Use Caffeine Use: Reports: Coffee, Tea Caffeine Use Comment: daily - Living Situation & Occupation Living situation: Reports: Single, with Family Occupation: Unemployed ED ROS GENERAL - Review of Systems Review Of Systems: Comprehensive ROS is negative, except as noted in HPI. ED EXAM,LOWER BACK PAIN/INJURY - Physical Exam Exam: See Below Exam Limited By: No Limitations General Appearance: Alert, Mild Distress Eye Exam: Bilateral Eye: PERRL Ears: Normal External Exam, Hearing Grossly Normal Nose: Normal Inspection Throat/Mouth: Normal Inspection, Normal Oropharynx Head: Atraumatic, Normocephalic Neck: Normal Inspection Respiratory/Chest: No Respiratory Distress, Lungs Clear, Normal Breath Sounds Cardiovascular: Regular Rate, Rhythm Back Exam: Other (sacral) Neurological: Alert, Normal Mood/Affect, Normal Dorsiflexion, Normal Plantar Flexion, Normal Gait, Oriented x 3, Straight Leg Raise (L), Straight Leg Raise (R). No: Tremor, Saddle Anesthesia Skin Exam: Warm, Dry, Ecchymosis (greenish brown bruising low sacral) Course - Vital Signs Last Recorded V/S: Last Vital Signs Temp 96.8 F L 03/19/21 03:29 Pulse 62 03/19/21 03:29 Resp 18 03/19/21 03:29 BP 129/92 H 03/19/21 03:29 Pulse Ox 97 03/19/21 03:29 - Re-Assessments/Exams Free Text/Narrative Re-Assessment/Exam: 03/27/21 00:11 Leaving AMA, does not want to wait around for xray to come in. State will go to clinic in am. Departure - Departure Time of Disposition: 05:00 Disposition: Against Medical Advice 07 Condition: Undetermined Clinical Impression: Low back pain Qualifiers: Chronicity: unspecified Back pain laterality: bilateral Sciatica presence: without sciatica Qualified Code(s): M54.5 - Low back pain - Discharge Information Referrals: PCP,None [Primary Care Provider] - Forms: ED Department Discharge
== END 2021-03-19 04:58 | disposition left against medical advice (07) ==
LOC: DL.ED 02:55
DX: M54.5 Low back pain (principal); G89.11 Acute pain due to trauma; I48.91 Unspecified atrial fibrillation; I10 Essential (primary) hypertension; Z72.0 Tobacco use; Z88.8 Allergy status to other drugs, medicaments and biological substances
CPT/HCPCS: 99282; 99283

== ENCOUNTER 2021-09-21 14:59 | Emergency (ER) | payer MEDICAID ==
[2021-09-21 15:23] VITALS: BP 127/83; PULSE 93
[2021-09-21 15:53] LABS: CHLORIDE,CL 105 mmol/L (98-107); ESTIMATED GFR > 60; SODIUM,NA 141 mmol/L (136-145)
[2021-09-21 15:56] LABS: AMPHETAMINES,URINE NEGATIVE (NEGATIVE); BARBITURATES,URINE NEGATIVE (NEGATIVE); BENZODIAZEPINE,URINE NEGATIVE (NEGATIVE); MDMA (ECSTASY), URINE NEGATIVE (NEGATIVE); METHADONE,URINE NEGATIVE (NEGATIVE); METHAMPHETAMINES,URINE NEGATIVE (NEGATIVE); OPIATES,URINE NEGATIVE (NEGATIVE); OXYCODONE,URINE NEGATIVE (NEGATIVE); PHENCYCLIDINE,URINE NEGATIVE (NEGATIVE); TCA,URINE NEGATIVE (NEGATIVE)
== END 2021-09-21 16:27 | disposition home or self-care (01) ==
LOC: DL.ED 14:59
DX: K70.9 Alcoholic liver disease, unspecified (principal); R42 Dizziness and giddiness; I48.91 Unspecified atrial fibrillation; I10 Essential (primary) hypertension; E11.9 Type 2 diabetes mellitus without complications; M19.90 Unspecified osteoarthritis, unspecified site; Z88.8 Allergy status to other drugs, medicaments and biological substances; Z79.82 Long term (current) use of aspirin; Z79.899 Other long term (current) drug therapy
CPT/HCPCS: 36415; 80053; 80305-QW; 80307; 81001; 82150; 82947; 83690; 84484; 85025; 93010; 99283; 99284-25

== ENCOUNTER 2022-01-07 17:43 | Emergency (ER) | payer MEDICAID ==
[2022-01-07 20:58] LABS: CORONAVIRUS COVID-19 NAA NEGATIVE (NEGATIVE)
[2022-01-07] MEDS ORDERED: Ketorolac 30 MG/ML SDV IM ONE (21:09)
[2022-01-07] MEDS ORDERED: Clindamycin HCl 150 MG Cap PO ONE (21:09)
[2022-01-07 21:22] VITALS: BP 134/85; PULSE 57
== END 2022-01-07 21:32 | disposition home or self-care (01) ==
LOC: DL.ED 17:43
DX: K04.7 Periapical abscess without sinus (principal); K02.9 Dental caries, unspecified; I48.91 Unspecified atrial fibrillation; E78.00 Pure hypercholesterolemia, unspecified; I10 Essential (primary) hypertension; M19.90 Unspecified osteoarthritis, unspecified site; E11.9 Type 2 diabetes mellitus without complications; Z88.8 Allergy status to other drugs, medicaments and biological substances; Z20.822 Contact with and (suspected) exposure to COVID-19; Z79.82 Long term (current) use of aspirin; Z79.899 Other long term (current) drug therapy
CPT/HCPCS: 0240U; 36415; 80053; 83605; 85025; 87040; 96372; 99284; A9270; J1885

== ENCOUNTER 2022-10-19 20:01 | Emergency (ER) | payer MEDICAID ==
[2022-10-19 20:43] VITALS: PULSE 69
[2022-10-19 21:51] VITALS: BP 132/77
[2022-10-19] MEDS: Lidocaine 5% 700 MG Patch TOP ONE (22:39)
== END 2022-10-19 22:42 | disposition home or self-care (01) ==
LOC: DL.ED 20:01
DX: R07.89 Other chest pain (principal); F10.10 Alcohol abuse, uncomplicated; E11.9 Type 2 diabetes mellitus without complications; I48.91 Unspecified atrial fibrillation; E78.00 Pure hypercholesterolemia, unspecified; I10 Essential (primary) hypertension; Z79.82 Long term (current) use of aspirin; Z79.899 Other long term (current) drug therapy; W18.30XA Fall on same level, unspecified, initial encounter
CPT/HCPCS: 71046; 99283; A9270-GY

== ENCOUNTER 2023-01-24 11:24 | Emergency (ER) | payer OTHER, MEDICAID ==
[2023-01-24 10:52] LABS: BASOPHILS PERCENT AUTO 1.1 % (0.0-1.0); EOSINOPHILS PERCENT AUTO 2.5 % (1.0-3.0); HEMATOCRIT 39.2 % (40.0-54.0); HEMOGLOBIN 13.3 g/dL (14.0-18.0); MEAN CORPUSCULAR HEMOGLOBIN 32.1 pg (27.0-34.0); MEAN CORPUSCULAR HGB CONC 33.9 g/dL (33.0-35.0); MEAN CORPUSCULAR VOLUME 94.7 fL (80-100); MONOCYTES PERCENT AUTO 11.6 % (2-8); NEUTROPHILS PERCENT AUTO 40.8 % (42.2-75.2); PLATELET COUNT,PLT 128 10^3/uL (150-450); RED BLOOD CELL COUNT 4.14 10^6/uL (4.6-6.2); WHITE BLOOD CELL COUNT,WBC 4.4 10^3/uL (5.0-10.0)
[2023-01-24 11:02] VITALS: BP 130/80; PULSE 79
[2023-01-24] MEDS: Sodium Chloride 0.9% 1,000 ML IV ONE (11:06)
[2023-01-24 11:12] LABS: A/G RATIO 0.62; ALBUMIN 3.1 g/dL (3.4-5.0); ANION GAP 14.7 mEq/L (7-13); BILIRUBIN TOTAL 0.6 mg/dL (0.2-1.0); EST CRCL DRUG DOSING (CG) 85.14 mL/min; POTASSIUM,K 3.7 mmol/L (3.5-5.1); PROTEIN TOTAL,TP 8.1 g/dL (6.4-8.2)
[2023-01-24 11:15] LABS: INR 1.2 (0.9-1.2); PTT,PARTIAL THROMBOPLSTIN TIME 27.7 SEC (22.0-34.0)
[2023-01-24] MEDS: Lactated Ringers 1,000 ML IV ONE (11:28)
[2023-01-24 12:22] LABS: APPEARANCE,URINE CLEAR (CLEAR); BILIRUBIN,URINE NEGATIVE (NEGATIVE); COLOR,URINE YELLOW (YELLOW); GLUCOSE,URINE NEGATIVE (NEGATIVE); KETONES,URINE NEGATIVE (NEGATIVE); LEUKOCYTE ESTERASE,URINE NEGATIVE (NEGATIVE); NITRITE,URINE NEGATIVE (NEGATIVE); OCCULT BLOOD,URINE NEGATIVE (NEGATIVE); PH,URINE 5.5 (5.0-9.0); PROTEIN,URINE NEGATIVE (NEGATIVE); UROBILINOGEN,URINE 0.2 mg/dL (0.2-1.0)
[2023-01-24 12:24] LABS: AMPHETAMINES,URINE NEGATIVE (NEGATIVE); BARBITURATES,URINE NEGATIVE (NEGATIVE); BENZODIAZEPINE,URINE NEGATIVE (NEGATIVE); MDMA (ECSTASY), URINE NEGATIVE (NEGATIVE); METHADONE,URINE NEGATIVE (NEGATIVE); METHAMPHETAMINES,URINE NEGATIVE (NEGATIVE); OPIATES,URINE NEGATIVE (NEGATIVE); OXYCODONE,URINE NEGATIVE (NEGATIVE); PHENCYCLIDINE,URINE NEGATIVE (NEGATIVE); TCA,URINE NEGATIVE (NEGATIVE)
[2023-01-24 13:22] LABS: HEMATOCRIT 38.3 % (40.0-54.0); HEMOGLOBIN 13.1 g/dL (14.0-18.0)
== END 2023-01-24 14:09 | disposition home or self-care (01) ==
LOC: DL.ED 11:24
DX: S06.0XAA Concussion with loss of consciousness status unknown, initial encounter (principal); S00.83XA Contusion of other part of head, initial encounter; E87.0 Hyperosmolality and hypernatremia; F10.920 Alcohol use, unspecified with intoxication, uncomplicated; R74.8 Abnormal levels of other serum enzymes; I48.91 Unspecified atrial fibrillation; I10 Essential (primary) hypertension; E78.00 Pure hypercholesterolemia, unspecified; M06.9 Rheumatoid arthritis, unspecified; E11.9 Type 2 diabetes mellitus without complications; Y90.8 Blood alcohol level of 240 mg/100 ml or more; Z88.6 Allergy status to analgesic agent; Z79.82 Long term (current) use of aspirin; Z79.899 Other long term (current) drug therapy; V89.2XXA Person injured in unspecified motor-vehicle accident, traffic, initial encounter; Y92.410 Unspecified street and highway as the place of occurrence of the external cause
CPT/HCPCS: 36415; 70450; 70486; 72125; 80053; 80305; 80307; 81003; 85014; 85018; 85025; 85610; 85730; 99284; 99285; J7030; J7120